=== PATIENT | female | born 1985 ===

== ENCOUNTER 2022-09-16 14:06 | Emergency (ER) | payer MEDICAID, SELFPAY ==
[2022-09-16 14:24] VITALS: BP 124/62; PULSE 77; RESP 18; TEMP 36.8; O2SAT 98; BMI 33.8
--- NOTE | 2022-09-16 14:28 | ED.GENADULT ---
HPI - General Adult General Chief complaint: General Medical Stated complaint: Been taking medication wrong / referred by pc Time Seen by Provider: 09/16/22 16:51 Related Data Home Medications Medication Instructions Recorded Confirmed bupropion HCl 300 mg 24 hr tablet, 1 tab PO DAILY 11/03/21 11/03/21 extended release gabapentin 300 mg capsule 2 cap PO QPM 11/03/21 11/03/21 Previous Rx's Medication Instructions Recorded bupropion HCl 450 mg 24 hr tablet, 450 mg PO DAILY #7 tabs 09/16/22 extended release Allergies Allergy/AdvReac Type Severity Reaction Status Date / Time Sulfa (Sulfonamide Allergy Intermediate Rash Verified 09/16/22 14:24 Antibiotics) [facility] Past Medical History Medical History Depression, major, severe recurrence Social History Social History Alcohol intake: current Alcohol intake frequency: a few times a week Smoked in Last 30 Days: Yes Use of substances other than those prescribed or required for medical reasons: Yes Substance Use Type: Marijuana Advance Directives: No Advance Directives Information Provided: No Patient : No Physical Exam ED Vital Signs: Vital Signs - 24 hr 09/16/22 14:24 09/16/22 16:34 09/16/22 18:00 Temperature 98.3 F 98.4 F 97.8 F Pulse Rate 77 66 67 Respiratory Rate 18 16 16 Blood Pressure 124/62 129/74 113/73 Pulse Oximetry 98 97 99 Oxygen Delivery Method Room Air Room Air Room Air 09/16/22 19:28 09/16/22 21:42 Temperature 98.2 F Pulse Rate 72 78 Respiratory Rate 18 17 Blood Pressure 122/68 115/63 Pulse Oximetry 98 98 Oxygen Delivery Method Room Air Room Air BMI result Body Mass Index 33.8 Course Course Course Narrative: RME: 37 yold female presents to the ED for taking extra dosages of wellbutrin for one week accidentally. patient sent by [facility] for evaluation. labs and EKG ordered Medical Decision Making Medical Decision Making MDM Narrative: -I reviewed patient's lab, hematology and chemistry unremarkable, urinalysis positive for blood, likely menstruating. No UTI symptoms, no bacteria. No UTI. -poison control recommendations: Monitor until 22:00, resume normal dose tomorrow. -I also discussed the case with our pharmacists who recommend to taper down the dose from 600 mg daily to 450 for 1 week, and then resume normal dose of 300 mg. I discussed this with the patient and patient is agreeable. -we kept the patient on the monitor, no arrhythmias, no serotonin syndrome symptoms. Patient's vitals stable, patient feeling sleepy but otherwise asymptomatic Differential Diagnosis Differential Diagnoses: The differential diagnosis associated with the presentation includes (Accidental medication overdose, depression) Lab Data MDM Lab Attestation statement: I reviewed the patient's lab results. 09/16/22 15:47 09/16/22 15:47 Labs: Lab Results 09/16/22 09/16/22 09/16/22 Range/Units 15:47 15:47 15:47 WBC 10.7 (4.8-10.8) X10*3/uL RBC 4.19 L (4.20-5.50) X10*6/uL Hgb 12.7 (12.0-16.0) g/dl Hct 37.7 (37.0-47.0) % MCV 90.0 (80.0-98.0) fL MCH 30.3 (27.0-33.0) pg MCHC 33.7 (31.0-35.0) g/dl RDW 12.9 (11.0-16.0) % Plt Count 456 H (160-400) X10*3/uL MPV 9.4 (9.4-12.3) fL Immature Gran % (Auto) 0.2 (0.0-0.4) % Neut % (Auto) 60.6 (45-73) % Lymph % (Auto) 26.8 (20-40) % [place] % (Auto) 9.8 (2-11) % Eos % (Auto) 1.8 (0-4) % Baso % (Auto) 0.8 (0-2) % Lymph # (Auto) 2.9 (1.2-4.9) X10*3/uL [place] # (Auto) 1.1 (0.1-1.2) X10*3/uL Eos # (Auto) 0.2 (0.0-0.4) X10*3/uL Baso # (Auto) 0.1 (0.0-0.2) X10*3/uL Abs Immat Gran (auto) 0.02 (0.00-0.03) X10*3/uL Absolute Neuts (auto) 6.5 (2.0-8.3) x10*3/uL Absolute Nucleated RBC 0.000 (0.0-0.012) X10*3/uL Nucleated RBC % (auto) 0.0 (0.0-0.2) /100WBC PT (10.0-13.1) SEC INR (0.9-1.1) APTT (26.0-36.4) SEC Sodium 140 (135-145) mmol/L Potassium 3.7 (3.3-5.1) mmol/L Chloride 105 (96-108) mmol/L Carbon Dioxide 26 (22-29) mmol/L Anion Gap 13 (12-20) BUN 8 L (9-16) mg/dL Creatinine 0.69 (0.5-1.4) mg/dL Estim Creat Clear Calc 113.1 Estimated GFR > 60 Random Glucose 100 (60-115) mg/dL Calcium 9.4 (8.4-10.2) mg/dL Magnesium 2.1 (1.6-2.6) mg/dL Total Bilirubin 0.4 (0.0-1.0) mg/dL AST 14 (5-31) U/L ALT 11 (0-31) U/L Alkaline Phosphatase 82 (39-117) U/L Total Creatine Kinase 75 (26-140) U/L Total Protein 7.2 (6.5-8.0) g/dL Albumin 4.1 (3.5-5.0) g/dL Beta HCG, Quant mIU/mL Urine Color Urine Appearance Urine pH (5.0-9.0) Ur Specific [place] (1.005-1.025) Urine Protein (Neg-Trace) mg/dL Urine Glucose (UA) (Negative) mg/dL Urine Ketones (Negative) mg/dL Urine Blood (Negative) Urine Nitrite (Negative) Ur Leukocyte Esterase (Negative) Urine RBC (0-2) /HPF Urine WBC (0-5) /HPF Ur Squamous Epith Cells (0-2) /HPF Urine Bacteria (None Seen) Hyaline Casts (0-2) /LPF Salicylates < 5.0 L (15-30) mg/dL Urine Opiates Screen (Not Detect) Urine Fentanyl Screen (Not Detect) Acetaminophen < 17 (<30) mcg/mL Ur Barbiturates Screen (Not Detect) Ur Phencyclidine Scrn (Not Detect) Ur Amphetamines Screen (Not Detect) U Benzodiazepines Scrn (Not Detect) Urine Cocaine Screen (Not Detect) U Marijuana (THC) Screen (Not Detect) Ethyl Alcohol < 10 mg/dL 09/16/22 09/16/22 09/16/22 Range/Units 15:47 15:47 16:56 WBC (4.8-10.8) X10*3/uL RBC (4.20-5.50) X10*6/uL Hgb (12.0-16.0) g/dl Hct (37.0-47.0) % MCV (80.0-98.0) fL MCH (27.0-33.0) pg MCHC (31.0-35.0) g/dl RDW (11.0-16.0) % Plt Count (160-400) X10*3/uL MPV (9.4-12.3) fL Immature Gran % (Auto) (0.0-0.4) % Neut % (Auto) (45-73) % Lymph % (Auto) (20-40) % [place] % (Auto) (2-11) % Eos % (Auto) (0-4) % Baso % (Auto) (0-2) % Lymph # (Auto) (1.2-4.9) X10*3/uL [place] # (Auto) (0.1-1.2) X10*3/uL Eos # (Auto) (0.0-0.4) X10*3/uL Baso # (Auto) (0.0-0.2) X10*3/uL Abs Immat Gran (auto) (0.00-0.03) X10*3/uL Absolute Neuts (auto) (2.0-8.3) x10*3/uL Absolute Nucleated RBC (0.0-0.012) X10*3/uL Nucleated RBC % (auto) (0.0-0.2) /100WBC PT 11.2 (10.0-13.1) SEC INR 1.0 (0.9-1.1) APTT 33.0 (26.0-36.4) SEC Sodium (135-145) mmol/L Potassium (3.3-5.1) mmol/L Chloride (96-108) mmol/L Carbon Dioxide (22-29) mmol/L Anion Gap (12-20) BUN (9-16) mg/dL Creatinine (0.5-1.4) mg/dL Estim Creat Clear Calc Estimated GFR Random Glucose (60-115) mg/dL Calcium (8.4-10.2) mg/dL Magnesium (1.6-2.6) mg/dL Total Bilirubin (0.0-1.0) mg/dL AST (5-31) U/L ALT (0-31) U/L Alkaline Phosphatase (39-117) U/L Total Creatine Kinase (26-140) U/L Total Protein (6.5-8.0) g/dL Albumin (3.5-5.0) g/dL Beta HCG, Quant < 2 mIU/mL Urine Color Urine Appearance Urine pH (5.0-9.0) Ur Specific [place] (1.005-1.025) Urine Protein (Neg-Trace) mg/dL Urine Glucose (UA) (Negative) mg/dL Urine Ketones (Negative) mg/dL Urine Blood (Negative) Urine Nitrite (Negative) Ur Leukocyte Esterase (Negative) Urine RBC (0-2) /HPF Urine WBC (0-5) /HPF Ur Squamous Epith Cells (0-2) /HPF Urine Bacteria (None Seen) Hyaline Casts (0-2) /LPF Salicylates (15-30) mg/dL Urine Opiates Screen Not Detected (Not Detect) Urine Fentanyl Screen Not Detected (Not Detect) Acetaminophen (<30) mcg/mL Ur Barbiturates Screen Not Detected (Not Detect) Ur Phencyclidine Scrn Not Detected (Not Detect) Ur Amphetamines Screen Not Detected (Not Detect) U Benzodiazepines Scrn Not Detected (Not Detect) Urine Cocaine Screen Not Detected (Not Detect) U Marijuana (THC) Screen POSITIVE H (Not Detect) Ethyl Alcohol mg/dL 09/16/22 Range/Units 16:57 WBC (4.8-10.8) X10*3/uL RBC (4.20-5.50) X10*6/uL Hgb (12.0-16.0) g/dl Hct (37.0-47.0) % MCV (80.0-98.0) fL MCH (27.0-33.0) pg MCHC (31.0-35.0) g/dl RDW (11.0-16.0) % Plt Count (160-400) X10*3/uL MPV (9.4-12.3) fL Immature Gran % (Auto) (0.0-0.4) % Neut % (Auto) (45-73) % Lymph % (Auto) (20-40) % [place] % (Auto) (2-11) % Eos % (Auto) (0-4) % Baso % (Auto) (0-2) % Lymph # (Auto) (1.2-4.9) X10*3/uL [place] # (Auto) (0.1-1.2) X10*3/uL Eos # (Auto) (0.0-0.4) X10*3/uL Baso # (Auto) (0.0-0.2) X10*3/uL Abs Immat Gran (auto) (0.00-0.03) X10*3/uL Absolute Neuts (auto) (2.0-8.3) x10*3/uL Absolute Nucleated RBC (0.0-0.012) X10*3/uL Nucleated RBC % (auto) (0.0-0.2) /100WBC PT (10.0-13.1) SEC INR (0.9-1.1) APTT (26.0-36.4) SEC Sodium (135-145) mmol/L Potassium (3.3-5.1) mmol/L Chloride (96-108) mmol/L Carbon Dioxide (22-29) mmol/L Anion Gap (12-20) BUN (9-16) mg/dL Creatinine (0.5-1.4) mg/dL Estim Creat Clear Calc Estimated GFR Random Glucose (60-115) mg/dL Calcium (8.4-10.2) mg/dL Magnesium (1.6-2.6) mg/dL Total Bilirubin (0.0-1.0) mg/dL AST (5-31) U/L ALT (0-31) U/L Alkaline Phosphatase (39-117) U/L Total Creatine Kinase (26-140) U/L Total Protein (6.5-8.0) g/dL Albumin (3.5-5.0) g/dL Beta HCG, Quant mIU/mL Urine Color Yellow Urine Appearance Turbid Urine pH 7.5 (5.0-9.0) Ur Specific [place] 1.015 (1.005-1.025) Urine Protein Negative (Neg-Trace) mg/dL Urine Glucose (UA) Negative (Negative) mg/dL Urine Ketones Negative (Negative) mg/dL Urine Blood Small (1+) H (Negative) Urine Nitrite Negative (Negative) Ur Leukocyte Esterase Negative (Negative) Urine RBC 6-10 H (0-2) /HPF Urine WBC 0-5 (0-5) /HPF Ur Squamous Epith Cells 0-2 (0-2) /HPF Urine Bacteria None Seen (None Seen) Hyaline Casts 0-2 (0-2) /LPF Salicylates (15-30) mg/dL Urine Opiates Screen (Not Detect) Urine Fentanyl Screen (Not Detect) Acetaminophen (<30) mcg/mL Ur Barbiturates Screen (Not Detect) Ur Phencyclidine Scrn (Not Detect) Ur Amphetamines Screen (Not Detect) U Benzodiazepines Scrn (Not Detect) Urine Cocaine Screen (Not Detect) U Marijuana (THC) Screen (Not Detect) Ethyl Alcohol mg/dL Discharge Plan Discharge Clinical Impression: Accidental drug ingestion Patient Disposition: Home, Self-Care Additional Instructions: Please take Wellbutrin 450 mg for 1 week, then resume your normal dose. Please follow-up with your primary care physician tomorrow. If you have any worsening or new symptoms, please return to the emergency room or call 911 Prescriptions: New bupropion HCl 450 mg tablet extended release 24 hr 450 mg PO DAILY Qty: 7 0RF Rx Instructions: Take 450 mg for this week, then resume your normal does of the 100 mg No Action bupropion HCl 300 mg tablet extended release 24 hr 1 tab PO DAILY gabapentin 300 mg capsule 2 cap PO QPM Interventions: ED Discharge Assessment Last Done: 09/16/22 21:42 Discharge Date/Time: 09/16/22 21:43
[2022-09-16 16:34] VITALS: BP 129/74; PULSE 66; RESP 16; TEMP 36.9; O2SAT 97
--- NOTE | 2022-09-16 16:50 | PC.NURSE ---
alert and oriented x3, pt comes in due to taking double amount of prescribed wellbutrin for the past week - prescribed 300mg but has been taking 600mg on accident, states that she is having palpitations, headache, nausea, vss, placed on ekg monitor displaying nsr, seems to be in no apparent distress, urine specimen obtained - sending to lab, call couch placed within reach, will continue to monitor.
--- NOTE | 2022-09-16 16:56 | ED.GENADULT ---
HPI - General Adult General Chief complaint: General Medical Stated complaint: Been taking medication wrong / referred by pc Time Seen by Provider: 09/16/22 16:51 Source: patient Mode of arrival: ambulatory Limitations: no limitations History of Present Illness HPI narrative: Patient comes to the emergency room, patient was sent by [employer] [facility] for further evaluation. Patient states that she went on vacation, packed or her pills, patient states that she is supposed to take Wellbutrin 300 mg and vitamin E. Both tablets look the same according to the patient. Patient accidentally took 600 mg of Wellbutrin daily for 1 week. Patient states that she has been feeling very groggy, which made her check her tablets. Patient denies suicidal or homicidal ideation. Patient states this was an accident Related Data Home Medications Medication Instructions Recorded Confirmed bupropion HCl 300 mg 24 hr tablet, 1 tab PO DAILY 11/03/21 11/03/21 extended release gabapentin 300 mg capsule 2 cap PO QPM 11/03/21 11/03/21 Previous Rx's Medication Instructions Recorded bupropion HCl 450 mg 24 hr tablet, 450 mg PO DAILY #7 tabs 09/16/22 extended release Allergies Allergy/AdvReac Type Severity Reaction Status Date / Time Sulfa (Sulfonamide Allergy Intermediate Rash Verified 09/16/22 14:24 Antibiotics) Review of Systems Review of Systems: Constitutional : No Weight loss, No Fever, No Chills, No Night Sweats, complaining of fatigue, feeling groggy ENT/Mouth : No Hearing loss, No Ear Pain, No Nasal Congestion, No Sinus Pain, No Hoarseness, No sore throat, No Rhinorrhea, No Swallowing Difficulty Eyes: No Eye Pain, No Swelling, No Redness, No Foreign Body, No Discharge, No Vision Changes Cardiovascular : No Chest Pain, No SOB, No Dyspnea on Exertion, No Orthopnea, No Edema, No Palpitations Respiratory : No Cough, No Sputum, No Wheezing, No Smoke Exposure, No Dyspnea Gastrointestinal : No Nausea, No Vomiting, No Diarrhea, No Constipation, No abdominal Pain, No Hematochezia, No Melena Genitourinary : no irregular bleeding, No Dysuria, No Urinary Frequency, No Hematuria, No Urinary Incontinence, No Urgency, No Flank Pain, No Urinary Flow Changes, No Hesitancy Musculoskeletal : No joint pain, No Myalgias, No Joint Swelling Skin : No Skin Lesions, No rash Neuro : No Weakness, No Numbness, No Paresthesias, No Loss of Consciousness, No Dizziness, No Headache Psych : No Anxiety/Panic, No Depression, No SI/HI/AH/VH, No Social Issues, Heme/Lymph: No Bruising, No Bleeding,No Lymphadenopathy Endocrine : No Polyuria, No Polydipsia, No Temperature Intolerance [facility] Past Medical History Medical History Depression, major, severe recurrence Social History Social History Alcohol intake: current Alcohol intake frequency: a few times a week Smoked in Last 30 Days: Yes Use of substances other than those prescribed or required for medical reasons: Yes Substance Use Type: Marijuana Advance Directives: No Advance Directives Information Provided: No Patient : No Physical Exam ED Vital Signs: Vital Signs - 24 hr 09/16/22 14:24 09/16/22 16:34 Temperature 98.3 F 98.4 F Pulse Rate 77 66 Respiratory Rate 18 16 Blood Pressure 124/62 129/74 Pulse Oximetry 98 97 Oxygen Delivery Method Room Air Room Air BMI result Body Mass Index 33.8 Const Other: Appearance: Alert. Oriented X3. No acute distress. Minimally somnolent, awake Eyes: Pupils equal, round and reactive to light. ENT: Pharynx normal. Neck: Normal inspection. Neck supple. No lymph nodes noted. No crepitus CVS: Normal heart rate and rhythm. Pulses normal. Normal S1 and S2 Respiratory: No respiratory distress. Breath sounds normal. No Wheezing. No rales Abdomen: Soft and nontender. No rigidity. No distention. Skin: Skin warm and dry. Normal skin color. Normal skin turgor. Extremities: No lower extremity edema. No Lacerations. No Rash Neuro: Oriented X 3. No motor deficit. No sensory deficit. Moving all extremities. No slurred speech. CN 2 through 12 grossly intact Psych: calm, cooperative, normal affect Course Course Course Narrative: -poison Control called back pending Medical Decision Making Medical Decision Making MDM Narrative: -I reviewed patient's laboratory work, patient tested negative for alcohol, salicylate and acetaminophen -my interpretation of EKG: Normal sinus rhythm, heart rate 69, no ST segment depression or elevation, no T-wave inversion, QTC 390 -other than feeling groggy, patient feels well Lab Data 09/16/22 15:47 09/16/22 15:47 Labs: Lab Results 09/16/22 09/16/22 09/16/22 Range/Units 15:47 15:47 15:47 WBC 10.7 (4.8-10.8) X10*3/uL RBC 4.19 L (4.20-5.50) X10*6/uL Hgb 12.7 (12.0-16.0) g/dl Hct 37.7 (37.0-47.0) % MCV 90.0 (80.0-98.0) fL MCH 30.3 (27.0-33.0) pg MCHC 33.7 (31.0-35.0) g/dl RDW 12.9 (11.0-16.0) % Plt Count 456 H (160-400) X10*3/uL MPV 9.4 (9.4-12.3) fL Immature Gran % (Auto) 0.2 (0.0-0.4) % Neut % (Auto) 60.6 (45-73) % Lymph % (Auto) 26.8 (20-40) % [place] % (Auto) 9.8 (2-11) % Eos % (Auto) 1.8 (0-4) % Baso % (Auto) 0.8 (0-2) % Lymph # (Auto) 2.9 (1.2-4.9) X10*3/uL [place] # (Auto) 1.1 (0.1-1.2) X10*3/uL Eos # (Auto) 0.2 (0.0-0.4) X10*3/uL Baso # (Auto) 0.1 (0.0-0.2) X10*3/uL Abs Immat Gran (auto) 0.02 (0.00-0.03) X10*3/uL Absolute Neuts (auto) 6.5 (2.0-8.3) x10*3/uL Absolute Nucleated RBC 0.000 (0.0-0.012) X10*3/uL Nucleated RBC % (auto) 0.0 (0.0-0.2) /100WBC PT (10.0-13.1) SEC INR (0.9-1.1) APTT (26.0-36.4) SEC Sodium 140 (135-145) mmol/L Potassium 3.7 (3.3-5.1) mmol/L Chloride 105 (96-108) mmol/L Carbon Dioxide 26 (22-29) mmol/L Anion Gap 13 (12-20) BUN 8 L (9-16) mg/dL Creatinine 0.69 (0.5-1.4) mg/dL Estim Creat Clear Calc 113.1 Estimated GFR > 60 Random Glucose 100 (60-115) mg/dL Calcium 9.4 (8.4-10.2) mg/dL Magnesium 2.1 (1.6-2.6) mg/dL Total Bilirubin 0.4 (0.0-1.0) mg/dL AST 14 (5-31) U/L ALT 11 (0-31) U/L Alkaline Phosphatase 82 (39-117) U/L Total Creatine Kinase 75 (26-140) U/L Total Protein 7.2 (6.5-8.0) g/dL Albumin 4.1 (3.5-5.0) g/dL Beta HCG, Quant mIU/mL Urine Color Urine Appearance Urine pH (5.0-9.0) Ur Specific [place] (1.005-1.025) Urine Protein (Neg-Trace) mg/dL Urine Glucose (UA) (Negative) mg/dL Urine Ketones (Negative) mg/dL Urine Blood (Negative) Urine Nitrite (Negative) Ur Leukocyte Esterase (Negative) Urine RBC (0-2) /HPF Urine WBC (0-5) /HPF Ur Squamous Epith Cells (0-2) /HPF Urine Bacteria (None Seen) Hyaline Casts (0-2) /LPF Salicylates < 5.0 L (15-30) mg/dL Urine Opiates Screen (Not Detect) Urine Fentanyl Screen (Not Detect) Acetaminophen < 17 (<30) mcg/mL Ur Barbiturates Screen (Not Detect) Ur Phencyclidine Scrn (Not Detect) Ur Amphetamines Screen (Not Detect) U Benzodiazepines Scrn (Not Detect) Urine Cocaine Screen (Not Detect) U Marijuana (THC) Screen (Not Detect) Ethyl Alcohol < 10 mg/dL 09/16/22 09/16/22 09/16/22 Range/Units 15:47 15:47 16:56 WBC (4.8-10.8) X10*3/uL RBC (4.20-5.50) X10*6/uL Hgb (12.0-16.0) g/dl Hct (37.0-47.0) % MCV (80.0-98.0) fL MCH (27.0-33.0) pg MCHC (31.0-35.0) g/dl RDW (11.0-16.0) % Plt Count (160-400) X10*3/uL MPV (9.4-12.3) fL Immature Gran % (Auto) (0.0-0.4) % Neut % (Auto) (45-73) % Lymph % (Auto) (20-40) % [place] % (Auto) (2-11) % Eos % (Auto) (0-4) % Baso % (Auto) (0-2) % Lymph # (Auto) (1.2-4.9) X10*3/uL [place] # (Auto) (0.1-1.2) X10*3/uL Eos # (Auto) (0.0-0.4) X10*3/uL Baso # (Auto) (0.0-0.2) X10*3/uL Abs Immat Gran (auto) (0.00-0.03) X10*3/uL Absolute Neuts (auto) (2.0-8.3) x10*3/uL Absolute Nucleated RBC (0.0-0.012) X10*3/uL Nucleated RBC % (auto) (0.0-0.2) /100WBC PT 11.2 (10.0-13.1) SEC INR 1.0 (0.9-1.1) APTT 33.0 (26.0-36.4) SEC Sodium (135-145) mmol/L Potassium (3.3-5.1) mmol/L Chloride (96-108) mmol/L Carbon Dioxide (22-29) mmol/L Anion Gap (12-20) BUN (9-16) mg/dL Creatinine (0.5-1.4) mg/dL Estim Creat Clear Calc Estimated GFR Random Glucose (60-115) mg/dL Calcium (8.4-10.2) mg/dL Magnesium (1.6-2.6) mg/dL Total Bilirubin (0.0-1.0) mg/dL AST (5-31) U/L ALT (0-31) U/L Alkaline Phosphatase (39-117) U/L Total Creatine Kinase (26-140) U/L Total Protein (6.5-8.0) g/dL Albumin (3.5-5.0) g/dL Beta HCG, Quant < 2 mIU/mL Urine Color Urine Appearance Urine pH (5.0-9.0) Ur Specific [place] (1.005-1.025) Urine Protein (Neg-Trace) mg/dL Urine Glucose (UA) (Negative) mg/dL Urine Ketones (Negative) mg/dL Urine Blood (Negative) Urine Nitrite (Negative) Ur Leukocyte Esterase (Negative) Urine RBC (0-2) /HPF Urine WBC (0-5) /HPF Ur Squamous Epith Cells (0-2) /HPF Urine Bacteria (None Seen) Hyaline Casts (0-2) /LPF Salicylates (15-30) mg/dL Urine Opiates Screen Not Detected (Not Detect) Urine Fentanyl Screen Not Detected (Not Detect) Acetaminophen (<30) mcg/mL Ur Barbiturates Screen Not Detected (Not Detect) Ur Phencyclidine Scrn Not Detected (Not Detect) Ur Amphetamines Screen Not Detected (Not Detect) U Benzodiazepines Scrn Not Detected (Not Detect) Urine Cocaine Screen Not Detected (Not Detect) U Marijuana (THC) Screen POSITIVE H (Not Detect) Ethyl Alcohol mg/dL 09/16/22 Range/Units 16:57 WBC (4.8-10.8) X10*3/uL RBC (4.20-5.50) X10*6/uL Hgb (12.0-16.0) g/dl Hct (37.0-47.0) % MCV (80.0-98.0) fL MCH (27.0-33.0) pg MCHC (31.0-35.0) g/dl RDW (11.0-16.0) % Plt Count (160-400) X10*3/uL MPV (9.4-12.3) fL Immature Gran % (Auto) (0.0-0.4) % Neut % (Auto) (45-73) % Lymph % (Auto) (20-40) % [place] % (Auto) (2-11) % Eos % (Auto) (0-4) % Baso % (Auto) (0-2) % Lymph # (Auto) (1.2-4.9) X10*3/uL [place] # (Auto) (0.1-1.2) X10*3/uL Eos # (Auto) (0.0-0.4) X10*3/uL Baso # (Auto) (0.0-0.2) X10*3/uL Abs Immat Gran (auto) (0.00-0.03) X10*3/uL Absolute Neuts (auto) (2.0-8.3) x10*3/uL Absolute Nucleated RBC (0.0-0.012) X10*3/uL Nucleated RBC % (auto) (0.0-0.2) /100WBC PT (10.0-13.1) SEC INR (0.9-1.1) APTT (26.0-36.4) SEC Sodium (135-145) mmol/L Potassium (3.3-5.1) mmol/L Chloride (96-108) mmol/L Carbon Dioxide (22-29) mmol/L Anion Gap (12-20) BUN (9-16) mg/dL Creatinine (0.5-1.4) mg/dL Estim Creat Clear Calc Estimated GFR Random Glucose (60-115) mg/dL Calcium (8.4-10.2) mg/dL Magnesium (1.6-2.6) mg/dL Total Bilirubin (0.0-1.0) mg/dL AST (5-31) U/L ALT (0-31) U/L Alkaline Phosphatase (39-117) U/L Total Creatine Kinase (26-140) U/L Total Protein (6.5-8.0) g/dL Albumin (3.5-5.0) g/dL Beta HCG, Quant mIU/mL Urine Color Yellow Urine Appearance Turbid Urine pH 7.5 (5.0-9.0) Ur Specific [place] 1.015 (1.005-1.025) Urine Protein Negative (Neg-Trace) mg/dL Urine Glucose (UA) Negative (Negative) mg/dL Urine Ketones Negative (Negative) mg/dL Urine Blood Small (1+) H (Negative) Urine Nitrite Negative (Negative) Ur Leukocyte Esterase Negative (Negative) Urine RBC 6-10 H (0-2) /HPF Urine WBC 0-5 (0-5) /HPF Ur Squamous Epith Cells 0-2 (0-2) /HPF Urine Bacteria None Seen (None Seen) Hyaline Casts 0-2 (0-2) /LPF Salicylates (15-30) mg/dL Urine Opiates Screen (Not Detect) Urine Fentanyl Screen (Not Detect) Acetaminophen (<30) mcg/mL Ur Barbiturates Screen (Not Detect) Ur Phencyclidine Scrn (Not Detect) Ur Amphetamines Screen (Not Detect) U Benzodiazepines Scrn (Not Detect) Urine Cocaine Screen (Not Detect) U Marijuana (THC) Screen (Not Detect) Ethyl Alcohol mg/dL Discharge Plan Discharge Clinical Impression: Accidental drug ingestion Patient Disposition: Home, Self-Care Additional Instructions: Please take Wellbutrin 450 mg for 1 week, then resume your normal dose. Please follow-up with your primary care physician tomorrow. If you have any worsening or new symptoms, please return to the emergency room or call 911 Prescriptions: New bupropion HCl 450 mg tablet extended release 24 hr 450 mg PO DAILY Qty: 7 0RF Rx Instructions: Take 450 mg for this week, then resume your normal does of the 100 mg No Action bupropion HCl 300 mg tablet extended release 24 hr 1 tab PO DAILY gabapentin 300 mg capsule 2 cap PO QPM Interventions: ED Discharge Assessment Last Done: 09/16/22 21:42 Discharge Date/Time: 09/16/22 21:43
--- NOTE | 2022-09-16 17:13 | PC.NURSE ---
poison control notified about pt's accidental excess wellbutrin ingestion for the past week, poison control ([facility]) stated to watch for serotonin symptoms which incudes tremors, seizures, clonus and QRS prolongation. [facility] noted to watch patient until at least tonight but will be speaking with the transplanter on a definitive plan and will call back shortly. [facility] stated that she does not recommend restarting medication administration today but it is based on provider/hospital teams discretion depending on the patient's status, dr. chamorro notified of poison control update, will notify dr. chamorro of transplanter's call back.
[2022-09-16 18:00] VITALS: BP 113/73; PULSE 67; RESP 16; TEMP 36.6; O2SAT 99
--- NOTE | 2022-09-16 18:01 | MHC.EDTECH ---
1800 vitals sign taken ,pt asked for some water ,provider said it was ok to give water .
[2022-09-16 19:28] VITALS: BP 122/68; PULSE 72; RESP 18; TEMP 36.8; O2SAT 98
--- NOTE | 2022-09-16 19:28 | PC.NURSE ---
assumed care of pt at 1900 - pt resting comfortably on stretcher on ekg monitor tech. pt offers no complaints at this time stating she feels much better than when she first came in. pt requesting food will check with provider.
--- NOTE | 2022-09-16 19:29 | MHC.EDTECH ---
patient vitals sign taken ,pt awake and resting in bed v,vitals are stable ,no issues at this time .
[2022-09-16 21:42] VITALS: BP 115/63; PULSE 78; RESP 17; O2SAT 98
== END 2022-09-16 21:43 | disposition home or self-care (01) ==
PROVIDERS: Emergency Provider Emergency Medicine
DX: T43.291A Poisoning by other antidepressants, accidental (unintentional), initial encounter (principal); Y92.9 Unspecified place or not applicable; F33.9 Major depressive disorder, recurrent, unspecified
CPT/HCPCS: 36415; 80053; 80143; 80179; 80307; 81001; 81003; 82550; 83735; 84702; 85025; 85610; 85730; 93005; 99284

== ENCOUNTER 2024-06-01 13:52 | Emergency (ER) | payer OTHER, SELFPAY ==
--- NOTE | ~2024-06-01 | CT_ITS ---
CLINICAL HISTORY: LLQ pain and elevated LFTs CT abdomen and pelvis with contrast Comparison: None Findings: No consolidation in the imaged lung bases. Mild fat deposition of the liver. Gallbladder wall thickening is likely due to underdistention. The adrenal glands are normal. The spleen is nonenlarged. Pancreas is unremarkable. No hydronephrosis. Nonenlarged lymphadenopathy. No small bowel obstruction. Wall thickening of the large intestine, including cecum is nonspecific and may reflect colitis. Mild distention of the appendix measuring 7 mm diameter is concerning for appendicitis given mild fluid and stranding adjacent to the tip of the appendix and mild adjacent colitis Uterus is anteverted. Dorsal-superior exophytic subserosal fibroid measures 2.5 cm. No soft tissue mass of either adnexa by CT. Mild wall thickening of the urinary bladder is nonspecific. Mild free fluid in the pelvis is likely physiologic gas is related to tampon in place. No acute osseous abnormality. IMPRESSION: 1. Mild dilatation of the appendix concerning for appendicitis. 2. Wall thickening of the large intestine is nonspecific and likely reflect colitis, including imaged cecum. This document has been electronically signed by: Rock Graves MD on 06/01/2024 22:58:21
[2024-06-01 14:34] VITALS: BP 119/64; PULSE 77; RESP 20; TEMP 37.2; O2SAT 98; BMI 31.7
--- NOTE | 2024-06-01 14:35 | ED_ITS ---
HPI - General Adult General Chief complaint: Abdominal Pain Stated complaint: L side flank pain Time Seen by Provider: 06/01/24 21:24 Source: patient Mode of arrival: ambulatory Limitations: no limitations History of Present Illness ED Provider: Dr. Milvia Frazier HPI narrative: Patient comes to the emergency room complaining of 5 days of sharp left lower quadrant pain and left flank pain. Patient states that she has a kidney stones before. However, patient states that when she went to urgent Care today, she was told that she had bilirubin in the urine and ketones and was sent to emergency room for further evaluation. Patient states that about 7 years ago she had bilirubin in the urine, elevated LFTs, and was diagnosed with a CMV infection. Patient states that she was followed up closely by Infectious Disease since she is not immunocompromised. Patient states that she has been having a lot of nausea, decreased appetite. No right upper quadrant pain or epigastric pain. Related Data Home Medications ?Medication ?Instructions ?Recorded ?Confirmed bupropion HCl 300 mg 24 hr tablet, 1 tab PO DAILY 11/03/21 11/03/21 extended release gabapentin 300 mg capsule 2 cap PO QPM 11/03/21 11/03/21 bupropion HCl 300 mg 24 hr tablet, 300 mg PO DAILY 01/31/23 01/31/23 extended release Previous Rx's ?Medication ?Instructions ?Recorded bupropion HCl 450 mg 24 hr tablet, 450 mg PO DAILY #7 tabs 09/16/22 extended release levofloxacin 500 mg tablet 500 mg PO DAILY #9 tabs 06/02/24 metronidazole 500 mg tablet 500 mg PO BID #19 tabs 06/02/24 ondansetron HCl 4 mg tablet 4 mg PO Q6H PRN nausea and 06/02/24 vomiting #14 tabs Allergies Allergy/AdvReac Type Severity Reaction Status Date / Time Sulfa (Sulfonamide Allergy Intermediate Rash Verified 06/01/24 14:37 Antibiotics) Review of Systems 2 Review of Systems: Constitutional : No Weight loss, No Fever, No Chills, No Night Sweats, No Fatigue, No Malaise ENT/Mouth : No Hearing loss, No Ear Pain, No Nasal Congestion, No Sinus Pain, No Hoarseness, No sore throat, No Rhinorrhea, No Swallowing Difficulty Eyes: No Eye Pain, No Swelling, No Redness, No Foreign Body, No Discharge, No Vision Changes Cardiovascular : No Chest Pain, No SOB, No Dyspnea on Exertion, No Orthopnea, No Edema, No Palpitations Respiratory : No Cough, No Sputum, No Wheezing, No Smoke Exposure, No Dyspnea Gastrointestinal : No Nausea, No Vomiting, No Diarrhea, No Constipation, complaining of left lower quadrant pain and left flank pain, constant and at times the sharp sensation gets intermittently worse. Genitourinary : no irregular bleeding, No Dysuria, No Urinary Frequency, No Hematuria, No Urinary Incontinence, No Urgency, complaining of left Flank Pain, No Urinary Flow Changes, No Hesitancy Musculoskeletal : No joint pain, No Myalgias, No Joint Swelling Skin : No Skin Lesions, No rash Neuro : No Weakness, No Numbness, No Paresthesias, No Loss of Consciousness, No Dizziness, No Headache Psych : No Anxiety/Panic, No Depression, No SI/HI/AH/VH, No Social Issues, Heme/Lymph: No Bruising, No Bleeding,No Lymphadenopathy Endocrine : No Polyuria, No Polydipsia, No Temperature Intolerance [facility] Past Medical History Medical History Depression, major, severe recurrence Social History Social History Alcohol intake: current Alcohol intake frequency: a few times a week Alcohol type: beer Substance Use Type: Marijuana Physical Exam ED Vital Signs: Vital Signs - 24 hr 06/01/24 14:34 06/01/24 21:01 06/02/24 00:21 Temperature 98.9 F 98.2 F 97.5 F Pulse Rate 77 72 71 Respiratory Rate 20 16 16 Blood Pressure 119/64 135/87 116/57 L Pulse Oximetry 98 100 100 Oxygen Delivery Method Room Air Room Air Room Air BMI result Body Mass Index 31.7 Const Other: Appearance: Alert. Oriented X3. No acute distress. Eyes: Pupils equal, round and reactive to light. ENT: Pharynx normal. Neck: Normal inspection. Neck supple. No lymph nodes noted. No crepitus CVS: Normal heart rate and rhythm. Pulses normal. Normal S1 and S2 Respiratory: No respiratory distress. Breath sounds normal. No Wheezing. No rales Abdomen: Soft, moderate discomfort to palpation in left lower quadrant in the flank, no right upper quadrant pain, negative Mejía's sign, no rebound or guarding. No obvious splenomegaly. No rigidity. No distention. Skin: Skin warm and dry. Normal skin color. Normal skin turgor. Extremities: No lower extremity edema. No Lacerations. No Rash Neuro: Oriented X 3. No motor deficit. No sensory deficit. Moving all extremities. No slurred speech. CN 2 through 12 grossly intact Psych: calm, cooperative, normal affect Course Course Course Narrative: This is a rapid medical exam performed by Kerri Ramos NP: Additional HPI, ROS, PE not included below will be deferred to primary provider. Patient is a 38-year-old female with history of kidney stones presenting with left flank pain since , one day of fever a few days ago, pain radiates to lower abdomen, urinary frequency. States pain feels more like pressure, different from kidney stones in the past. Plan: labs, UA Reevaluation(s) Reevaluation #1: called and spoke with the patient about positive CMV antibody IgG and IgM. she reports history of this 7 years ago. she overall is feeling better. ongoing lower abd pain and nausea but improved. went to [facility] ER yesterday and was discharged. seen by her PCP this morning. encouraged to come to the ER if symptoms are worsening. all questions answered Time: 13:28 Medications Administered Discontinued Medications Generic Name Dose Route Start Last Admin Trade Name Freq PRN Reason Stop Dose Admin Diphenhydramine HCl 50 mg 06/02/24 01:54 06/02/24 01:57 Diphenhydramine Hcl 50 Mg/Ml Vial IVPUSH 06/02/24 01:55 50 mg ONCE ONE Administration Famotidine 20 mg 06/02/24 01:54 06/02/24 01:58 Famotidine/Pf 20 Mg/2 Ml Vial IVPUSH 06/02/24 01:55 20 mg ONCE ONE Administration Sodium Chloride 1,000 mls @ 999 mls/hr 06/01/24 21:32 06/02/24 00:59 Ns IVCONT 06/01/24 22:32 Infused .Q1H1M ONE Infusion Levofloxacin 500 mg in 100 mls @ 100 mls/hr 06/02/24 01:12 06/02/24 02:07 Levaquin IV 06/02/24 02:11 Not Given ONCE ONE Metronidazole 500 mg in 100 mls @ 100 mls/hr 06/02/24 01:12 06/02/24 02:00 Flagyl IV 06/02/24 02:11 0 mls/hr ONCE ONE Infusion Iohexol 85 ml 06/01/24 22:01 06/01/24 22:02 Iohexol 350 Mg/Ml 100 Ml Infus..Btl IV 06/01/24 22:02 85 ml ONCE ONE Administration Levofloxacin 500 mg 06/02/24 01:55 06/02/24 02:05 Levofloxacin 500 Mg Tablet PO 06/02/24 01:56 500 mg ONCE ONE Administration Metronidazole 500 mg 06/02/24 01:55 06/02/24 02:05 Metronidazole 500 Mg Tablet PO 06/02/24 01:56 500 mg ONCE ONE Administration Ondansetron HCl 4 mg 06/01/24 21:32 06/01/24 21:45 Ondansetron Hcl 4 Mg/2 Ml Vial IVPUSH 06/01/24 21:33 4 mg ONCE ONE Administration Prochlorperazine Edisylate 10 mg 06/02/24 01:12 06/02/24 01:35 Prochlorperazine Edisylate 10 Mg/2 Ml Vial IVPUSH 06/02/24 01:13 10 mg ONCE ONE Administration Medical Decision Making Medical Decision Making MDM Narrative: Patient receiving IV fluids, Zofran. My interpretation of labs: Normal hematology and chemistry, LFTs are elevated, T bilirubin 2.2 AST 346, ALT 644, alk-phos 303, hCG negative, urinalysis negative for UTI. Patient denies hematuria, patient's UA positive for blood, likely bilirubin. Also, I added a CMV and hepatitis panel, unlikely to resolve today. Patient states that she is still vomiting despite a dose of Zofran, patient receiving now Compazine. CT scan was read as possible appendicitis, large intestine, possible colitis I discussed the imaging with Dr. Fox from the surgery team, no obvious signs of appendicitis. Since patient also has possible colitis and left lower quadrant pain, patient was given a dose of levofloxacin and metronidazole. After a 2nd dose of nausea medications, patient will be p.o. challenged again. Patient p.o. challenge herself, did well Patient was given referrals for GI Discussed with the patient that if the CMV and hepatitis serologies becomes positive, she will receive a phone call. Differential Diagnosis Differential Diagnoses: The differential diagnosis associated with the presentation includes (Viral illness, colitis, gastroenteritis) Admission/Observation Consideration of admission/observation: Escalation of care including admission/observation considered (Given patient's labs and presentation, observation/admission was considered) Consult Healthcare Provider Management of the patient was discussed with: Rn Residential Lab Data MDM Lab Attestation statement: I reviewed the patient's lab results. 06/01/24 15:15 06/01/24 15:15 Labs: Lab Results 06/01/24 06/01/24 06/02/24 Range/Units 15:15 21:43 01:41 WBC 9.1 (4.8-10.8) X10*3/uL RBC 4.75 (4.20-5.50) X10*6/uL Hgb 14.4 (12.0-16.0) g/dl Hct 40.7 (37.0-47.0) % MCV 85.7 (80.0-98.0) fL MCH 30.3 (27.0-33.0) pg MCHC 35.4 H (31.0-35.0) g/dl RDW 13.0 (11.0-16.0) % Plt Count 328 D (160-400) X10*3/uL MPV 9.5 (9.4-12.3) fL Immature Gran % (Auto) Cancelled Neut % (Auto) Cancelled Lymph % (Auto) Cancelled Ramsey % (Auto) Cancelled Eos % (Auto) Cancelled Baso % (Auto) Cancelled Lymph # (Auto) Cancelled Ramsey # (Auto) Cancelled Eos # (Auto) Cancelled Baso # (Auto) Cancelled Abs Immat Gran (auto) Cancelled Absolute Neuts (auto) Cancelled Absolute Nucleated RBC 0.000 (0.0-0.012) X10*3/uL Nucleated RBC % (auto) 0.0 (0.0-0.2) /100WBC Neutrophils % (Manual) 44 L (45-73) % Band Neutrophils % 7 H (3-5) % Lymphocytes % (Manual) 32 (20-40) % Atypical Lymphs % (Man) 5 (0-6) % Monocytes % (Manual) 10 (2-11) % Eosinophils % (Manual) 2 (0-4) % Abs Neuts (Manual) 4.6 (2.0-8.3) X10*3/uL Lymphocytes # (Manual) 2.9 (1.2-4.9) X10*3/uL Atyp Lymphs # (Manual) 0.5 x10*3/uL Monocytes # (Manual) 0.9 (0.1-1.2) X10*3/uL Eosinophils # (Manual) 0.2 (0.0-0.4) X10*3/uL Platelet Estimate NORMAL (NORMAL) Plt Morphology Comment NORMAL RBC Morphology NORMAL Smear Tech's Comments MANUAL DIFF Sodium 138 (135-145) mmol/L Potassium 3.8 (3.3-5.1) mmol/L Chloride 103 (96-108) mmol/L Carbon Dioxide 28 (22-29) mmol/L Anion Gap 11 L (12-20) BUN 5 L (9-16) mg/dL Creatinine 0.61 (0.5-1.4) mg/dL Estim Creat Clear Calc 142.0 Estimated GFR > 60 POC Glucose 127 H (60-115) mg/dL Random Glucose 127 H (60-115) mg/dL Calcium 9.3 (8.4-10.2) mg/dL Total Bilirubin 2.2 H (0.0-1.0) mg/dL Direct Bilirubin 1.6 H (0.0-0.5) mg/dL AST 346 H (5-31) U/L ALT 644 H (0-31) U/L Alkaline Phosphatase 383 H (39-117) U/L Total Protein 7.7 (6.5-8.0) g/dL Albumin 3.9 (3.5-5.0) g/dL Beta HCG, Quant < 2 mIU/mL Urine Color Dark Yellow Urine Appearance Clear Urine pH 7.0 (5.0-9.0) Ur Specific [place] <= 1.005 (1.005-1.025) Urine Protein Negative (Neg-Trace) mg/dL Urine Glucose (UA) Negative (Negative) mg/dL Urine Ketones Negative (Negative) mg/dL Urine Blood Large (3+) H (Negative) Urine Nitrite Negative (Negative) Ur Leukocyte Esterase Negative (Negative) Urine RBC >20 H (0-2) /HPF Urine WBC 0-5 (0-5) /HPF Ur Squamous Epith Cells 0-2 (0-2) /HPF Urine Bacteria None Seen (None Seen) Hyaline Casts 0-2 (0-2) /LPF CMV IgG Ab 3.00 H U/mL CMV IgM Ab 36.30 H AU/mL Hepatitis A IgM Ab Nonreactive (Nonreactive) Hep Bs Antigen Negative (Negative) Hep Bs Antibody REACTIVE (Nonreactive) Hep B Core Total Ab Nonreactive (Nonreactive) Hepatitis C Ab (EIA) Nonreactive (Nonreactive) Independent Interpretation I performed an independent interpretation of an: CT Scan Radiology Impression Discussion of test interpretation with radiology: I have reviewed the radiologist's reading. Radiologist Impression: No consolidation in the imaged lung bases. Mild fat deposition of the liver. Gallbladder wall thickening is likely due to underdistention. The adrenal glands are normal. The spleen is nonenlarged. Pancreas is unremarkable. No hydronephrosis. Nonenlarged lymphadenopathy. No small bowel obstruction. Wall thickening of the large intestine, including cecum is nonspecific and may reflect colitis. Mild distention of the appendix measuring 7 mm diameter is concerning for appendicitis given mild fluid and stranding adjacent to the tip of the appendix and mild adjacent colitis Uterus is anteverted. Dorsal-superior exophytic subserosal fibroid measures 2.5 cm. No soft tissue mass of either adnexa by CT. Mild wall thickening of the urinary bladder is nonspecific. Mild free fluid in the pelvis is likely physiologic gas is related to tampon in place. No acute osseous abnormality. IMPRESSION: 1. Mild dilatation of the appendix concerning for appendicitis. 2. Wall thickening of the large intestine is nonspecific and likely reflect colitis, including imaged cecum. Critical Care Time Critical Care Time Critical Care Time: Yes Total Critical Care Time: 45 Attestation: I have personally provided critical care time. Time includes review of lab data, radiology results, discussion with consultants, and monitoring for potential decompensation. Intervention performed as documented. Discharge Plan Discharge Clinical Impression: Colitis, LFT elevation Patient Disposition: Home, Self-Care Instructions: Acute Nausea and Vomiting (ED), Colitis (ED) Additional Instructions: Please follow-up with your primary care physician tomorrow. If you have any worsening or new symptoms, please return to the emergency room or call 911 Prescriptions: New levofloxacin 500 mg tablet 500 mg PO DAILY Qty: 9 0RF metronidazole 500 mg tablet 500 mg PO BID Qty: 19 0RF ondansetron HCl 4 mg tablet 4 mg PO Q6H PRN (Reason: nausea and vomiting) Qty: 14 0RF No Action bupropion HCl 300 mg tablet extended release 24 hr 1 tab PO DAILY gabapentin 300 mg capsule 2 cap PO QPM bupropion HCl 450 mg tablet extended release 24 hr 450 mg PO DAILY Qty: 7 0RF Rx Instructions: Take 450 mg for this week, then resume your normal does of the 100 mg bupropion HCl 300 mg tablet extended release 24 hr 300 mg PO DAILY Referrals: Saravanan Goodson MD [Physician] - 06/03/24 Interventions: ED Discharge Assessment Last Done: 06/02/24 02:18 Discharge Date/Time: 06/02/24 02:18 Print Language: Ugandan
[2024-06-01 15:22] LABS: Appearance Urine Clear; Color Urine Dark Yellow; Glucose Urine UA Negative (Negative); Leukocyte Esterase Urine Negative (Negative); Nitrite Urine Negative (Negative); Specific Gravity - Urine <= 1.005 (1.005-1.025); UMIC TRIGGER UACC YES; Urine Blood Large (3+) (Negative); Urine Ketones Negative (Negative); Urine Protein Negative (Neg-Trace)
[2024-06-01 15:25] LABS: Hematocrit 40.7 % (37.0-47.0); Hemoglobin 14.4 g/dl (12.0-16.0); Mean Corpuscular HGB Conc 35.4 g/dl (31.0-35.0); Mean Corpuscular Hemoglobin 30.3 pg (27.0-33.0); Mean Corpuscular Volume 85.7 fL (80.0-98.0); Mean Platelet Volume 9.5 fL (9.4-12.3); Platelet Count 328 X10*3/uL (160-400); Red Blood Count 4.75 X10*6/uL (4.20-5.50); White Blood Count 9.1 X10*3/uL (4.8-10.8)
[2024-06-01 15:26] LABS: Bacteria Urine None Seen (None Seen); Hyaline Casts Urine 0-2 /LPF (0-2); RBC Urine >20 /HPF (0-2); Squamous Epithelial Cell Urine 0-2 /HPF (0-2); WBC Urine 0-5 /HPF (0-5)
[2024-06-01 15:46] LABS: Alanine Aminotransferase 644 U/L (0-31); Albumin Level 3.9 g/dL (3.5-5.0); Anion Gap 11 (12-20); Aspartate Amino Transferase 346 U/L (5-31); Bilirubin Total 2.2 mg/dL (0.0-1.0); Blood Urea Nitrogen 5 mg/dL (9-16); Calcium 9.3 mg/dL (8.4-10.2); Carbon Dioxide 28 mmol/L (22-29); Chloride 103 mmol/L (96-108); Estimated Glomerular Filt Rate > 60; Glucose Random 127 mg/dL (60-115); HCG Quantitative < 2 mIU/mL; Potassium 3.8 mmol/L (3.3-5.1); Sodium 138 mmol/L (135-145); Total Protein 7.7 g/dL (6.5-8.0)
[2024-06-01 16:01] LABS: Alkaline Phosphatase 383 U/L (39-117)
[2024-06-01 20:56] LABS: SLIDE REVIEW MANUAL DIFF
[2024-06-01 21:01] VITALS: BP 135/87; PULSE 72; RESP 16; TEMP 36.8; O2SAT 100
[2024-06-01 21:12] LABS: Atypical Lymph Absolute Manual 0.5 x10*3/uL; Atypical Lymphs Percent Manual 5 % (0-6); Band Neutrophils Percent 7 % (3-5); Eosinophils Absolute Manual 0.2 X10*3/uL (0.0-0.4); Eosinophils Percent Manual 2 % (0-4); Lymphocytes Absolute Manual 2.9 X10*3/uL (1.2-4.9); Lymphocytes Percent Manual 32 % (20-40); Monocytes Absolute Manual 0.9 X10*3/uL (0.1-1.2); Monocytes Percent Manual 10 % (2-11); Neutrophils Absolute Manual 4.6 X10*3/uL (2.0-8.3); Neutrophils Percent Manual 44 % (45-73); RBC Morphology NORMAL
[2024-06-01 21:13] LABS: Platelet Estimate NORMAL (NORMAL); Platelet Morphology Comment NORMAL
[2024-06-01] MEDS: 0.9 % Sodium Chloride 1,000 ML 999 ML IVCONT (21:43)
[2024-06-01] MEDS: ondansetron HCL 4 MG/2 ML VIAL IVPUSH (21:45)
[2024-06-01 21:56] LABS: Bilirubin Direct 1.6 mg/dL (0.0-0.5)
[2024-06-01] MEDS: iohexoL 350 MG/ML 100 ML INFUS..BTL 85 ML IV (22:02)
[2024-06-02 00:21] VITALS: BP 116/57; PULSE 71; RESP 16; TEMP 36.4; O2SAT 100
[2024-06-02] MEDS: metroNIDAZOLE/NS 500 MG/100 ML PIGGYBACK 100 MG IV (01:33)
[2024-06-02] MEDS: Prochlorperazine Edisylate 10 MG/2 ML VIAL IVPUSH (01:35)
[2024-06-02 01:45] LABS: Glucose, Whole Blood 127 mg/dL (60-115)
[2024-06-02] MEDS: diphenhydrAMINE HCL 50 MG/ML VIAL IVPUSH (01:57)
--- NOTE | 2024-06-02 01:57 | PC.NURSE ---
Pt reports feeling itchy/hot all over, appears anxious and states she is ready to go. Provider made aware. Plan for benadryl and remaining antibiotics to be changed to PO route.
[2024-06-02] MEDS: Famotidine/PF 20 MG/2 ML VIAL IVPUSH (01:58)
[2024-06-02 02:04] VITALS: BP 122/80; PULSE 78; RESP 16; TEMP 36.2; O2SAT 97
[2024-06-02] MEDS: levoFLOXacin 500 MG TABLET PO (02:05)
[2024-06-02] MEDS: metroNIDAZOLE 500 MG TABLET PO (02:05)
--- NOTE | 2024-06-02 02:05 | PC.NURSE ---
Pt reports feeling better after benadryl administration.
--- NOTE | 2024-06-02 02:17 | PC.NURSE ---
Pt tolerated PO medications well. Denies any nausea. PIV removed, gauze applied and bleeding controlled. Ambulatory out of department with steady gait and all personal belongings.
[2024-06-02 02:18] VITALS: BP 122/80; PULSE 78; RESP 16; TEMP 36.2; O2SAT 97
[2024-06-02 08:01] LABS: HBS Num1 273.68 mIU/mL (0-7.99); HBsAGNum1 0.38 S/CO (0.00-0.99); Hepatitis A Antibody IgM 0.14 Index (0-0.79); Hepatitis B Core Antibody Nonreactive (Nonreactive); Hepatitis B Surface Antigen Negative (Negative); ~HepC Num1 0.47 S/CO (0.00-0.79); ~Hepatitis A Antibody IgM Nonreactive (Nonreactive); ~Hepatitis B Surface Antibody REACTIVE (Nonreactive); ~Hepatitis C Antibody Nonreactive (Nonreactive)
== END 2024-06-02 02:18 | disposition home or self-care (01) ==
PROVIDERS: Registered Nurse Emergency; Emergency Provider Emergency Medicine; PCP Nurse Practitioner Adult Health
DX: K52.9 Noninfective gastroenteritis and colitis, unspecified (principal); M54.50 Low back pain, unspecified; R10.32 Left lower quadrant pain; R79.89 Other specified abnormal findings of blood chemistry; R10.2 Pelvic and perineal pain; R11.0 Nausea; Z79.899 Other long term (current) drug therapy
CPT/HCPCS: 36415; 74177; 80053; 81001; 82248; 82947; 84702; 85007; 85025; 85027; 86644; 86645; 86704; 86706; 86709; 86803; 87340; 96361; 96365; 96375; 99284; J0737; J1200; J1836; J2405; Q9967

== ENCOUNTER → 2024-06-01 21:33 | Outpatient (BNV) | payer SELFPAY | PROVIDERS: Emergency Provider Emergency Medicine; PCP Nurse Practitioner Adult Health; Visit Provider Radiology Neuroradiology | DX: R10.32 Left lower quadrant pain (principal); R74.01 Elevation of levels of liver transaminase levels | CPT/HCPCS: 74177 ==